=== PATIENT | male | born 2000 | race Caucasian/White ===

== ENCOUNTER 2023-05-21 17:55 | Outpatient (CLI) | payer BC, OTHER ==
--- NOTE | 2023-05-22 11:40 | XRAY Report ---
PROCEDURE: Hip w/Pelvis 1V LT INDICATIONS: LEFT HIP PAIN TECHNIQUE: AP pelvis with lateral view(s) of the hip(s). COMPARISON: None. FINDINGS: Bones: No fractures or dislocations. No suspicious bony lesions. Prominent colonic stool without obstruction. Soft tissues: No suspicious soft tissue calcifications or masses. IMPRESSION: Prominent colonic stool suggestive constipation. No obstruction. Reviewed by: Lorri Kapadia MD on 05/22/2023 11:39 AM [facility] Approved by: Lorri Kapadia MD on 05/22/2023 11:39 AM [facility] Station ID: [id number]
== END 2023-05-21 17:56 | disposition home or self-care (01) ==
LOC: DI.S 17:55
PROVIDERS: ATTEND Internal Medicine
DX: M25.552 Pain in left hip (principal)

== ENCOUNTER 2023-07-22 11:19 | Outpatient (CLI) | payer BC, OTHER ==
[2023-07-22 15:03] LABS: BASOPHILS # (AUTO) 0.1 10^3/uL (0.0-0.1); BASOPHILS % (AUTO) 0.5 %; EOSINOPHILS # (AUTO) 0.2 10^3/uL (0.0-0.7); EOSINOPHILS % (AUTO) 1.6 %; HCT - HEMATOCRIT 43.9 % (42.0-52.0); HGB - HEMOGLOBIN 14.2 g/dL (14.0-18.0); LYMPHOCYTES # (AUTO) 3.6 10^3/uL (1.5-3.5); LYMPHOCYTES % (AUTO) 38.8 %; MEAN CORPUSCULAR HEMOGLOBIN 28.4 pg (27.0-31.0); MEAN CORPUSCULAR HGB CONC 32.3 g/dL (32.0-36.0); MEAN CORPUSCULAR VOLUME 87.8 fL (80.0-94.0); MEAN PLATELET VOLUME 10.2 fL (7.4-11.4); MONOCYTES # (AUTO) 0.8 10^3/uL (0.0-1.0); MONOCYTES % (AUTO) 8.2 %; NEUTROPHILS # (AUTO) 4.7 10^3/uL (1.5-6.6); NEUTROPHILS % (AUTO) 50.7 %; PLT - PLATELET COUNT 371 10^3/uL (130-450); RED CELL DISTRIBUTION WIDTH 13.4 % (12.0-15.0); WHITE BLOOD COUNT 9.3 x10^3/uL (4.8-10.8)
[2023-07-22 15:45] LABS: ALBUMIN 4.3 g/dL (3.2-5.5); ALBUMIN/GLOBULIN RATIO 1.3 (1.0-2.2); ALKALINE PHOSPHATASE 68 IU/L (42-121); ALT ALANINE AMINOTRANSFERASE 16 IU/L (10-60); AST ASPARTATE AMINOTRANSFERASE 17 IU/L (10-42); BILIRUBIN,TOTAL 0.3 mg/dL (0.2-1.0); BUN - BLOOD UREA NITROGEN 18 mg/dL (6-20); CALCIUM 9.7 mg/dL (8.5-10.3); CARBON DIOXIDE - CO2 29 mmol/L (21-32); CHLORIDE 104 mmol/L (101-111); CHOL/HDL RATIO 3.7 (<5.0); CHOLESTEROL 180 mg/dL; CREATININE 0.7 mg/dL (0.6-1.3); GFR - MDRD 137 (>89); GLUCOSE 112 mg/dL (74-104); HDL CHOLESTEROL 49 mg/dL; LDL CHOLESTEROL,CALCULATED 103 mg/dL; LDL/HDL RATIO 2.1 (<3.6); POTASSIUM 3.8 mmol/L (3.5-4.5); SODIUM 139 mmol/L (135-145); TOTAL PROTEIN 7.7 g/dL (6.4-8.9); TRIGLYCERIDES 141 mg/dL (48-352); VLDL CHOLESTEROL 28 mg/dL
[2023-07-23 06:11] LABS: HCV AB Non Reactive (Non Reactive)
== END 2023-07-22 11:20 | disposition home or self-care (01) ==
LOC: LAB.S 11:19
PROVIDERS: ATTEND Internal Medicine Rheumatology
DX: K51.919 Ulcerative colitis, unspecified with unspecified complications (principal); E87.6 Hypokalemia; Z13.220 Encounter for screening for lipoid disorders; Z11.59 Encounter for screening for other viral diseases; M25.552 Pain in left hip; G89.29 Other chronic pain
CPT/HCPCS: 36415; 80053; 80061; 81374; 83721; 85025; 85651; 86140; 86803